=== PATIENT | male | born 1965 | race Caucasian/White ===

== ENCOUNTER 2017-06-03 13:00 | Emergency (ER) | payer BC ==
[2017-06-03] MEDS ORDERED: Aspirin 81 MG Tab.Chew PO ONE (13:06)
--- NOTE | 2017-06-03 13:15 | EDM.PDOC ---
ED HPI GENERAL MEDICAL PROBLEM - General Chief Complaint: Chest Pain Stated Complaint: CHEST PAINS Time Seen by Provider: 06/03/17 13:06 Source of Information: Reports: Patient History Limitations: Reports: No Limitations - History of Present Illness INITIAL COMMENTS - FREE TEXT/NARRATIVE: HISTORY AND PHYSICAL: History of present illness: Patient is a 51-year-old male who presents to the emergency room today with complaints of left sided chest pain this been on and off for approximately one week. He states the pain is worse at nighttime when he is getting ready for bed. He reports nothing makes this pain better. Describes the pain as a throbbing pressure. Stating "I feel like I can feel my heart beating". Does have some associated shortness of breath and feeling nauseated. Patient believes his symptoms are related to trying to quit smoking, has cut back his tobacco use over the past 3 weeks. Has a 40 year pack per day history. Patient denies any abdominal pain, nausea, vomiting or diarrhea. Denies any headache, change in vision, neuropathies. Denies any drug or alcohol abuse. Denies any personal history of heart disease or hypertension. Does have heart disease in his family, grandfather due to an [place]. Review of systems: As per history of present illness and below otherwise all systems reviewed and negative. Past medical history: As per history of present illness and as reviewed below otherwise noncontributory. Surgical history: As per history of present illness and as reviewed below otherwise noncontributory. Social history: No reported history of drug or alcohol abuse. Family history: As per history of present illness and as reviewed below otherwise noncontributory. Physical exam: Gen.: Well-developed and well-nourished 51-year-old male. Alert and oriented. Appears in no acute distress and is nontoxic appearing. HEENT: Atraumatic, normocephalic, pupils reactive, negative for conjunctival pallor or scleral icterus, mucous membranes moist, throat clear, neck supple, nontender, trachea midline. Lungs: Clear to auscultation, breath sounds equal bilaterally, chest nontender. Heart: S1S2, regular, negative for clicks, rubs, or JVD. Abdomen: Soft, nondistended, nontender. Negative for masses or hepatosplenomegaly. Negative for costovertebral tenderness. Pelvis: Stable nontender. Genitourinary: Deferred. Rectal: Deferred. Extremities: Atraumatic, negative for cords or calf pain. Neurovascular unremarkable. Neuro: Awake, alert, oriented. Cranial nerves II through XII unremarkable. Cerebellum unremarkable. Motor and sensory unremarkable throughout. Exam nonfocal. EKG shows normal sinus rhythm with a heart rate of 69. Patient's blood pressure dropped to 102/52 after receiving 2 nitros, 3rd nitro held at this time. He did state his pain went from a 4/10 to 3/10 after the nitro. CBC, CMP, troponin are normal. EKG as stated before was normal sinus. Chest x- ray shows no sign of pneumonia or infiltrates. Patient was offered admission for observation. This was discussed in great length with both patient and significant other. Still declined after reviewing risks versus benefits. He reports he will follow up with the learning administrator in the next couple weeks. We'll discharge the patient home. Encouraged him to start a baby aspirin once daily, as he has no contraindication. Diagnostics: CBC, CMP, troponin, EKG, 1 view chest Therapeutics: Aspirin, nitroglycerin, saline lock Impression: Chest pain Plan: 1. You declined admission today. If you do start to have worsening chest pain, new symptoms, or worsening symptoms as we discussed please return to the emergency room [place]. 2. Please start taking a baby aspirin once daily. Follow up with a learning administrator in the next 1-2 weeks. 3. As we discussed please follow-up with your primary care in the next couple days. Return to the ED as needed and as discussed. Definitive disposition and diagnosis as appropriate pending reevaluation and review of above. Duration: Week(s): Location: Reports: Chest chest Pain Score (Numeric/FACES): 3 - Related Data Allergies Allergy/AdvReac Type Severity Reaction Status Date / Time No Known Allergies Allergy Verified 06/03/17 13:14 Home Meds: Home Meds . [No Known Home Meds] 06/03/17 [History] ED ROS GENERAL - Review of Systems Review Of Systems: ROS reveals no pertinent complaints other than HPI. ED EXAM, GENERAL - Physical Exam Exam: See Below (See dictation) Course - Vital Signs Last Recorded V/S: Last Vital Signs Temp 98.1 F 06/03/17 13:14 Pulse 68 06/03/17 13:14 Resp 18 06/03/17 13:14 BP 122/57 L 06/03/17 13:32 Pulse Ox 96 06/03/17 13:14 - Orders/Labs/Meds Orders: Active Orders 24 hr Category Date Time Status EKG Documentation Completion [RC] STAT Care 06/03/17 13:06 Active Ketorolac [Toradol] Med 06/03/17 14:31 Once 30 mg IVPUSH ONETIME ONE Nitroglycerin [Nitrostat] Med 06/03/17 13:06 Active 0.4 mg SL Q5M PRN Sodium Chloride 0.9% [Normal Saline] 1,000 ml Med 06/03/17 13:38 Active IV STAT Medication Orders Sodium Chloride (Normal Saline) 1,000 mls @ 150 mls/hr IV STAT ONE Stop: 06/03/17 20:17 Last Admin: 06/03/17 13:39 Dose: 150 mls/hr Nitroglycerin (Nitrostat) 0.4 mg SL Q5M PRN PRN Reason: Chest Pain Last Admin: 06/03/17 13:32 Dose: 0.4 mg Admin: 06/03/17 13:27 Dose: 0.4 mg Labs: Laboratory Tests 06/03/17 06/03/17 Range/Units 13:29 13:29 WBC 6.92 (4.0-11.0) K/uL RBC 4.94 (4.50-5.90) M/uL Hgb 15.1 (13.0-17.0) g/dL Hct 43.3 (38.0-50.0) % MCV 87.7 (80.0-98.0) fL MCH 30.6 (27.0-32.0) pg MCHC 34.9 (31.0-37.0) g/dL RDW Std Deviation 42.0 (28.0-62.0) fl RDW Coeff of Wesley 13 (11.0-15.0) % Plt Count 261 (150-400) K/uL MPV 9.60 (7.40-12.00) fL Neut % (Auto) 48.3 (48.0-80.0) % Lymph % (Auto) 39.7 (16.0-40.0) % [place] % (Auto) 10.0 (0.0-15.0) % Eos % (Auto) 1.3 (0.0-7.0) % Baso % (Auto) 0.7 (0.0-1.5) % Neut # (Auto) 3.3 (1.4-5.7) K/uL Lymph # (Auto) 2.8 H (0.6-2.4) K/uL [place] # (Auto) 0.7 (0.0-0.8) K/uL Eos # (Auto) 0.1 (0.0-0.7) K/uL Baso # (Auto) 0.1 (0.0-0.1) K/uL Nucleated RBC % 0.0 /100WBC Nucleated RBCs # 0 K/uL Sodium 138 (136-146) mmol/L Potassium 3.7 (3.5-5.1) mmol/L Chloride 106 (98-110) mmol/L Carbon Dioxide 25 (21-31) mmol/L BUN 14 (6.0-23.0) mg/dL Creatinine 0.9 (0.6-1.5) mg/dL Est Cr Clr Drug Dosing 98.01 mL/min Estimated GFR (MDRD) > 60.0 ml/min Glucose 98 (60-110) mg/dL Calcium 9.0 (8.8-10.8) mg/dL Total Bilirubin 0.4 (0.1-1.5) mg/dL AST 16 (5-40) IU/L ALT 26 (8-54) IU/L Alkaline Phosphatase 86 (40-150) Troponin I < 0.10 (0.0-0.29) NG/ML Total Protein 6.6 (6.0-8.0) g/dL Albumin 3.9 (3.5-5.0) g/dL Globulin 2.7 (2.0-3.5) g/dL Albumin/Globulin Ratio 1.4 (1.3-2.8) Meds: Medications Generic Name Dose Route Start Last Admin Trade Name Freq PRN Reason Stop Dose Admin Sodium Chloride 1,000 mls @ 150 mls/hr 06/03/17 13:38 06/03/17 13:39 Normal Saline IV 06/03/17 20:17 150 mls/hr STAT ONE Administration Nitroglycerin 0.4 mg 06/03/17 13:06 06/03/17 13:32 Nitrostat SL 0.4 mg Q5M PRN Administration Chest Pain Discontinued Medications Generic Name Dose Route Start Last Admin Trade Name Gypsy PRN Reason Stop Dose Admin Aspirin 324 mg 06/03/17 13:06 06/03/17 13:26 Aspirin PO 06/03/17 13:07 324 mg ONETIME ONE Administration Departure - Departure Time of Disposition: 14:31 Disposition: Home, Self-Care 01 Clinical Impression: Nonspecific chest pain Instructions: Nonspecific Chest Pain, [id number] Forms: ED Department Discharge Additional Instructions: My general discharge The following information is given to patients seen in the emergency department who are being discharged to home. This information is to outline your options for follow-up care. We provide all patients seen in our emergency department with a follow-up referral. The need for follow-up, as well as the timing and circumstances, are variable depending upon the specifics of your emergency department visit. If you don't have a primary care physician on staff, we will provide you with a referral. We always advise you to contact your personal physician following an emergency department visit to inform them of the circumstance of the visit and for follow-up with them and/or the need for any referrals to a consulting specialist. The emergency department will also refer you to a specialist when appropriate. This referral assures that you have the opportunity for follow-up care with a specialist. All of these measure are taken in an effort to provide you with optimal care, which includes your follow-up. Under all circumstances we always encourage you to contact your private physician who remains a resource for coordinating your care. When calling for follow-up care, please make the office aware that this follow-up is from your recent emergency room visit. If for any reason you are refused follow-up, please contact the [facility] Emergency Department at and asked to speak to the emergency department charge nurse. [facility] [address] [place] [id number] 1. You declined admission today. If you do start to have worsening chest pain, new symptoms, or worsening symptoms as we discussed; please return to the emergency room [place]. 2. Please start taking a baby aspirin once daily. Follow up with a learning administrator in the next 1-2 weeks. 3. As we discussed please follow-up with your primary care in the next couple days. Return to the ED as needed and as discussed. - My Orders Last 24 Hours: My Active Orders 06/03/17 13:06 EKG Documentation Completion [RC] STAT Nitroglycerin [Nitrostat] 0.4 mg SL Q5M PRN 06/03/17 13:38 Sodium Chloride 0.9% [Normal Saline] 1,000 ml IV STAT 06/03/17 14:31 Ketorolac [Toradol] 30 mg IVPUSH ONETIME ONE - Assessment/Plan Last 24 Hours: My Active Orders 06/03/17 13:06 EKG Documentation Completion [RC] STAT Nitroglycerin [Nitrostat] 0.4 mg SL Q5M PRN 06/03/17 13:38 Sodium Chloride 0.9% [Normal Saline] 1,000 ml IV STAT 06/03/17 14:31 Ketorolac [Toradol] 30 mg IVPUSH ONETIME ONE
[2017-06-03] MEDS: Nitroglycerin 0.4 MG Tab.SL SL PRN ×2 (13:27→13:32)
[2017-06-03] MEDS ORDERED: Sodium Chloride 0.9% 1,000 ML IV ONE (13:38)
[2017-06-03 14:01] LABS: CHLORIDE,CL 106 mmol/L (98-110); SODIUM,NA 138 mmol/L (136-146)
--- NOTE | 2017-06-03 14:23 | CR ---
EXAMINATION: Portable chest radiograph. HISTORY: Shortness of breath. FINDINGS: The trachea is midline. The cardiomediastinal silhouette is within normal limits. No pulmonary infilt rates, effusions or pneumothorax. Osseous structures appear unremarkable. IMPRESSION: No acute cardiopulmonary process.
[2017-06-03] MEDS ORDERED: Ketorolac 30 MG/ML SDV IVPUSH ONE (14:31)
== END 2017-06-03 14:50 | disposition home or self-care (01) ==
LOC: MW.ED 13:00
DX: R07.89 Other chest pain (principal); F17.210 Nicotine dependence, cigarettes, uncomplicated
CPT/HCPCS: 36415; 71045; 80053; 84484; 85025; 93005; 96361; 96374; 99285; A9270; J1885; J7040; 99284

== ENCOUNTER 2018-02-10 20:26 | Emergency (ER) | payer BC, OTHER ==
--- NOTE | 2018-02-10 20:37 | EDM.PDOC ---
ED HPI GENERAL MEDICAL PROBLEM - General Stated Complaint: PT HURT RT FOOT Time Seen by Provider: 02/10/18 20:36 Source of Information: Reports: Patient History Limitations: Reports: No Limitations - History of Present Illness INITIAL COMMENTS - FREE TEXT/NARRATIVE: HISTORY AND PHYSICAL: History of present illness: 52-year-old male presenting to emergency department with chief complaint of right foot pain 1 week. Patient states that approximately 1 week ago he jumped off the back of a trailer bed landing on hard concrete. He did notice some initial pain in the right sole of his foot. However, patient continued to work on it for this past week. States that the pain has continued and is now causing him to walk just on the side of his foot. Denies any loss of sensation, strength, range of motion. Patient denies previous injury to foot. Denies any other trauma. On exam neurovascular intact. Patient is tender to palpation in the arch of the right foot. Posterior tibialis and dorsalis medius pulses +2. No significant visual findings. Review of systems: As per history of present illness and below otherwise all systems reviewed and negative. Past medical history: As per history of present illness and as reviewed below otherwise noncontributory. Surgical history: As per history of present illness and as reviewed below otherwise noncontributory. Social history: No reported history of drug or alcohol abuse. Family history: As per history of present illness and as reviewed below otherwise noncontributory. Physical exam: HEENT: Atraumatic, normocephalic, pupils reactive, negative for conjunctival pallor or scleral icterus, mucous membranes moist, throat clear, neck supple, nontender, trachea midline. Lungs: Clear to auscultation, breath sounds equal bilaterally, chest nontender. Heart: S1S2, regular, negative for clicks, rubs, or JVD. Abdomen: Soft, nondistended, nontender. Negative for masses or hepatosplenomegaly. Negative for costovertebral tenderness. Pelvis: Stable nontender. Genitourinary: Deferred. Rectal: Deferred. Extremities: See above H&P, negative for cords or calf pain. Neurovascular unremarkable. Neuro: Awake, alert, oriented. Cranial nerves II through XII unremarkable. Cerebellum unremarkable. Motor and sensory unremarkable throughout. Exam nonfocal. Diagnostics: Right foot x-ray Therapeutics: Toradol 60 mg IM 1 Impression: Right foot pain Plan: Right foot x-ray was unremarkable. Most likely patient has a strain of the right foot and may have torn some of the aponeurosis of the plantar fascia. Gave patient a prescription for diclofenac and instructed him to rest the area, ice, and elevate to help with healing. Patient states he does have a week off from work so we'll be able to rest his foot some. He does not have a primary care provider so I instructed him to follow with one after he returns from his vacation to make sure he is improving. He was discharged in good condition with instructions to return to emergency department if he had a new or worsening symptoms. Definitive disposition and diagnosis as appropriate pending reevaluation and review of above. right foot Pain Score (Numeric/FACES): 8 - Related Data Allergies Allergy/AdvReac Type Severity Reaction Status Date / Time No Known Allergies Allergy Verified 02/10/18 21:02 Home Meds: Home Meds . [No Known Home Meds] 06/03/17 [History] Past Medical History - Past Health History Medical/Surgical History: Denies Medical/Surgical History - Infectious Disease History Infectious Disease History: Reports: Chicken Pox Social & Family History - Family History Family Medical History: Noncontributory - Caffeine Use Caffeine Use: Reports: None ED ROS GENERAL - Review of Systems Review Of Systems: ROS reveals no pertinent complaints other than HPI. ED EXAM, GENERAL - Physical Exam Exam: See Below Course - Vital Signs Last Recorded V/S: Last Vital Signs Temp 98.0 F 02/10/18 22:05 Pulse 68 02/10/18 22:05 Resp 20 02/10/18 22:05 BP 120/72 02/10/18 22:05 Pulse Ox 95 02/10/18 22:05 - Orders/Labs/Meds Orders: Active Orders 24 hr Category Date Time Status Foot Comp Min 3V Rt [CR] Stat Exams 02/10/18 21:31 Taken Meds: Medications Discontinued Medications Generic Name Dose Route Start Last Admin Trade Name Freq PRN Reason Stop Dose Admin Ketorolac Tromethamine 60 mg 02/10/18 22:10 Toradol IM 02/10/18 22:11 ONETIME ONE Departure - Departure Time of Disposition: 22:27 Disposition: Home, Self-Care 01 Condition: Good Clinical Impression: Right foot pain Right foot strain Qualifiers: Encounter type: initial encounter Qualified Code(s): S96.911A - Strain of unspecified muscle and tendon at ankle and foot level, right foot, initial encounter - Discharge Information Referrals: PCP,None [Primary Care Provider] - Additional Instructions: My general discharge The following information is given to patients seen in the emergency department who are being discharged to home. This information is to outline your options for follow-up care. We provide all patients seen in our emergency department with a follow-up referral. The need for follow-up, as well as the timing and circumstances, are variable depending upon the specifics of your emergency department visit. If you don't have a primary care physician on staff, we will provide you with a referral. We always advise you to contact your personal physician following an emergency department visit to inform them of the circumstance of the visit and for follow-up with them and/or the need for any referrals to a consulting specialist. The emergency department will also refer you to a specialist when appropriate. This referral assures that you have the opportunity for follow-up care with a specialist. All of these measure are taken in an effort to provide you with optimal care, which includes your follow-up. Under all circumstances we always encourage you to contact your private physician who remains a resource for coordinating your care. When calling for follow-up care, please make the office aware that this follow-up is from your recent emergency room visit. If for any reason you are refused follow-up, please contact the [facility] Emergency Department at and asked to speak to the emergency department charge nurse. [facility] [address] [place] [id number] Please call above number as we discussed to follow-up with a primary care provider. Be sure to tell them that you were seen in the emergency department and they wish for you to be seen as soon as possible preferably after he returned from [place]. Take medication as prescribed. Return to emergency department if any new or worsening symptoms. - My Orders Last 24 Hours: My Active Orders 02/10/18 21:31 Foot Comp Min 3V Rt [CR] Stat - Assessment/Plan Last 24 Hours: My Active Orders 02/10/18 21:31 Foot Comp Min 3V Rt [CR] Stat
[2018-02-10] MEDS ORDERED: Ketorolac 60 MG/2 ML SDV IM ONE (22:10)
--- NOTE | 2018-02-11 13:00 | CR ---
EXAM DATE: 02/10/18 PATIENT'S AGE: 52 Patient: DAVID ZAFAR Facility: [place], [place] Site . Site : [id number] Study: XRay Extremity Right foot [id number] 9:50:57 PM Ordering Physician: Thomas Bocanegra Final Report: INDICATION: Foot Injury 1 week ago TECHNIQUE: Foot radiograph 3 views right COMPARISON: None FINDINGS: Bone: No acute fractures or aggressive bone lesions are identified. Joint: The visualized hindfoot, midfoot, and forefoot joints are unremarkable in appearance. No significant ankle effusion is seen. Soft tissue: Unremarkable. No radiopaque foreign bodies are seen. IMPRESSION: 1. No acute osseous injuries or abnormalities are noted. Dictated by: Srikanth Denise MD @ 02/10/2018 21:55:10 (Electronic Signature) Report Signed by Proxy. DEEDEE
== END 2018-02-10 22:45 | disposition home or self-care (01) ==
LOC: MW.ED 20:26
DX: S96.911A Strain of unspecified muscle and tendon at ankle and foot level, right foot, initial encounter (principal); W06.XXXA Fall from bed, initial encounter; Y92.029 Unspecified place in mobile home as the place of occurrence of the external cause
CPT/HCPCS: 73630; 96372; 99283; J1885

== ENCOUNTER 2021-03-10 15:11 | Emergency (ER) | payer OTHER ==
[2021-03-10] MEDS ORDERED: Lidocaine 1% with EPINEPHrine 1:100,000 20 ML MDV ONE (15:20)
[2021-03-10] MEDS: Lidocaine 1% with EPINEPHrine 1:100,000 20 ML MDV INJECT ONE ×2 (15:24→15:33)
--- NOTE | 2021-03-10 15:36 | EDM.PDOC ---
ED HPI GENERAL MEDICAL PROBLEM - General Chief Complaint: Laceration Stated Complaint: R HAND CUT AT WORK Time Seen by Provider: 03/10/21 15:14 - History of Present Illness INITIAL COMMENTS - FREE TEXT/NARRATIVE: Otherwise well male presenting with laceration to the thenar eminence of the left hand. Patient fell off a ladder and cut the hand on some wood. No other injury from the fall no LOC no head trauma etc. Patient with severe pain in the left hand that worsens with range of motion of the thumb. No numbness or tingling. Right Hand Pain Score (Numeric/FACES): 9 - Related Data Allergies Allergy/AdvReac Type Severity Reaction Status Date / Time No Known Allergies Allergy Verified 03/10/21 15:19 Home Meds: Home Meds Amoxicillin/Clavulanate K [Augmentin 875-125 MG] 1 tab PO BID 7 Days #14 tablet 03/10/21 [Rx] Past Medical History - Past Health History Medical/Surgical History: Denies Medical/Surgical History - Infectious Disease History Infectious Disease History: Reports: Chicken Pox Social & Family History - Family History Family Medical History: No Pertinent Family History - Caffeine Use Caffeine Use: Reports: None - Recreational Drug Use Recreational Drug Use: No ED ROS GENERAL - Review of Systems Review Of Systems: See Below Free Text/Narrative/Comment: General: No fever. Skin: Per HPI Eyes: No vision problems. Neck: No neck stiffness. Respiratory: No shortness of breath. Cardiac: No chest pain. Musculoskeletal: Per HPI Neurologic: No headache. ED EXAM, SKIN/RASH Exam: See Below Text/Narrative:: General Appearance: No acute distress, appears comfortable HEENT: Normocephalic/atraumatic, sclera anicteric, mucous membranes moist Neck: Normal range of motion Chest and Lungs: Normal work of breathing Cardiovascular: Intact distal perfusion Musculoskeletal: 2+ left radial pulse there is a 6 cm V-shaped laceration at the base of the left thumb with its apex at the proximal edge of the thenar eminence median radial and ulnar nerves are intact in the left hand patient with good function of the thumb. No signs of tendon injury on initial evaluation. Neurologic: Awake, alert, no obvious deficits, moving all extremities Psychiatric: Appropriate, cooperative ED SKIN PROCEDURES - Splinting Left Thumb Pre-Procedure NV Status: Normal Post-Procedure NV Status: Normal Splint Material: Fiberglass Splint Design: Thumb Spica Applied & Form Fitted By: Nurse Provider Post-Splint Application NV Check: NV Status Normal Complications: No - Additional/Other Procedure(s) Other (Free Text) Procedure(s): Laceration Repair Procedure Location: Base of left thumb Length: 7 cm Suture size and type: 5-0 nylon Number of sutures: 12 Complexity: Simple Time out: Yes, confirmed patient, place, procedure correct Consent: Verbal Suture technique: Simple interrupted Procedure: The wound was irrigated copiously with normal saline or sterile water. Close inspection revealed no evidence for retained foreign bodies. Anesthesia was achieved using lidocaine. Sutures were placed using the above technique with approximation of the wound edges. Sterile dressing was applied to the closed wound. Complications: None Performed by: Gomez Arango MD Course - Vital Signs Last Recorded V/S: Last Vital Signs Temp 97.5 F 03/10/21 15:16 Pulse 65 03/10/21 15:16 Resp 20 03/10/21 15:16 BP 134/82 03/10/21 15:16 Pulse Ox 99 03/10/21 15:16 - Orders/Labs/Meds Meds: Medications Discontinued Medications Generic Name Dose Route Start Last Admin Trade Name Freq PRN Reason Stop Dose Admin Lidocaine HCl Confirm 03/10/21 15:26 03/10/21 15:30 Lidocaine 1% 5 Ml Sdv Administered 03/10/21 15:27 Not Given Dose 20 ml .ROUTE .STK-MED ONE Lidocaine HCl 20 ml 03/10/21 15:29 03/10/21 15:34 Lidocaine 1% 5 Ml Sdv INJECT 03/10/21 15:30 20 ml ONETIME ONE Administration Lidocaine HCl 5 ml 03/10/21 16:14 03/10/21 16:34 Lidocaine 1% 5 Ml Sdv INJECT 03/10/21 16:15 5 ml ONETIME ONE Administration Lidocaine HCl Confirm 03/10/21 16:15 03/10/21 16:35 Lidocaine 1% 5 Ml Sdv Administered 03/10/21 16:16 Not Given Dose 5 ml .ROUTE .STK-MED ONE Lidocaine/Epinephrine Confirm 03/10/21 15:20 03/10/21 15:24 Lidocaine 1% With Epinephrine 1:100,000 20 Ml Mdv Administered 03/10/21 15:21 Not Given Dose 20 ml .ROUTE .STK-MED ONE Lidocaine/Epinephrine 20 ml 03/10/21 15:22 03/10/21 15:33 Lidocaine 1% With Epinephrine 1:100,000 20 Ml Mdv INJECT 03/10/21 15:23 Not Given ONETIME ONE Departure - Departure Time of Disposition: 16:38 Disposition: Home, Self-Care 01 Condition: Good Clinical Impression: Hand laceration - Discharge Information *PRESCRIPTION DRUG MONITORING PROGRAM REVIEWED*: Not Applicable *COPY OF PRESCRIPTION DRUG MONITORING REPORT IN PATIENT ROB: Not Applicable Prescriptions: Amoxicillin/Clavulanate K [Augmentin 875-125 MG] 1 tab PO BID 7 Days #14 tablet Instructions: Cast or Splint Care, Adult, [id number] Referrals: PCP,None [Primary Care Provider] - Forms: ED Department Discharge Additional Instructions: Please keep the dressing in place and the splint on until you follow-up with hand surgery early this coming week. If you notice any bleeding through the bandage develop a fever or any other symptoms that concern you please return to the ER. Please take the antibiotics as prescribed for as long as the hand surgeon directs. Please call the Hand Surgery Clinic at [facility] in [place] at [phone] on Thursday morning. I spoke to Dr. Solitario today about you. They will make arrangements to see you in their clinic in the next 24 to 48 hours. The following information is given to patients seen in the emergency department who are being discharged to home. This information is to outline your options for follow-up care. We provide all patients seen in our emergency department with a follow-up referral. The need for follow-up, as well as the timing and circumstances, are variable depending upon the specifics of your emergency department visit. If you don't have a primary care physician on staff, we will provide you with a referral. We always advise you to contact your personal physician following an emergency department visit to inform them of the circumstance of the visit and for follow-up with them and/or the need for any referrals to a consulting specialist. The emergency department will also refer you to a specialist when appropriate. This referral assures that you have the opportunity for follow-up care with a specialist. All of these measure are taken in an effort to provide you with optimal care, which includes your follow-up. Under all circumstances we always encourage you to contact your private physician who remains a resource for coordinating your care. When calling for follow-up care, please make the office aware that this follow-up is from your recent emergency room visit. If for any reason you are refused follow-up, please contact the [facility] Emergency Department at and asked to speak to the emergency department charge nurse. Sepsis Event Note (ED) - Evaluation Sepsis Screening Result: No Definite Risk - Focused Exam Vital Signs: Vital Signs Temp Pulse Resp BP Pulse Ox 03/10/21 15:16 97.5 F 65 20 134/82 99 - Assessment/Plan Assessment:: 55-year-old male presents with left hand laceration as described left median and radial nerve block performed well irrigate copiously and repair as documented. Depending on additional tendon exam patient may or may not need hand surgery follow-up. No signs of other injury from the fall. Exam with good anesthesia revealed a number of very small wooden foreign bodies which were removed area was copiously irrigated with high-pressure normal saline by myself. Area was cleansed thoroughly as possible. Wound was repaired as documented. Will splint and discuss with hand surgery. Pt discussed with Dr. Solitario of hand surgery at [facility] in [place]. Patient will be seen by them in 24-48 hours. Patient felt stable for discharge.
== END 2021-03-10 17:06 | disposition home or self-care (01) ==
LOC: MW.ED 15:11
DX: S61.012A Laceration without foreign body of left thumb without damage to nail, initial encounter (principal); W45.8XXA Other foreign body or object entering through skin, initial encounter; Y99.0 Civilian activity done for income or pay
CPT/HCPCS: 12002; 99282-25

== ENCOUNTER 2021-10-17 21:17 | Emergency (ER) | payer OTHER | END 2021-10-17 23:18 | disposition left against medical advice (07) | LOC: MW.ED 21:17 | DX: Z53.21 Procedure and treatment not carried out due to patient leaving prior to being seen by health care provider (principal) | CPT/HCPCS: 71046; 71046-26 ==

== ENCOUNTER 2024-03-16 08:03 | Day surgery (SDC) | payer OTHER ==
[2024-03-16] MEDS ORDERED: propofoL 50 ML ONE (08:50)
[2024-03-16] MEDS: Lactated Ringers 1,000 ML IV SCH (08:56)
== END 2024-03-16 11:30 | disposition home or self-care (01) ==
LOC: MW.SDS 08:03
PROVIDERS: ATTEND Surgery
DX: K63.5 Polyp of colon (principal); K21.9 Gastro-esophageal reflux disease without esophagitis; Z80.0 Family history of malignant neoplasm of digestive organs; F17.210 Nicotine dependence, cigarettes, uncomplicated; Z79.899 Other long term (current) drug therapy
CPT/HCPCS: 45385; J2704; J7120; 00811